=== PATIENT | female | born 1960 | race Caucasian/White ===

== ENCOUNTER 2016-07-03 21:04 | Emergency (ER) | payer BC ==
[~2016-07-03] VITALS: Ht 162.6 cm; Wt 111.0 kg
[~2016-07-03 21:04] MED LIST: CANA100T PO; CELE40TA PO; ESTE400C PO; FISH1000 PO; GABA800T PO; IBUP-232 PO; LACTCAP8 PO; LANTUS2P SQ; LEVO137T2 PO; LISI40TA PO; LOPE2TAB3 PO; METF1000 PO; METO100T PO; METO50TA PO; MULTTAB67 PO; NYST10007 TOPICAL; ROBA750T PO; ROSU10 PO; VITA10003 PO
[2016-07-03 22:24] VITALS: BP 144/76; PULSE 99; RESP 16; TEMP 98.2; O2SAT 94
[2016-07-04] MEDS ORDERED: IBUP-232 PO (02:07)
[2016-07-04] MEDS ORDERED: HYDR-3533 PO (02:07)
[2016-07-04] MEDS ORDERED: CYCL1TAB29 PO (02:07)
--- NOTE | 2016-07-04 02:07 | PD ---
HPI Chief Complaint: Musculoskeletal Complaint Time Seen by Provider: 01:57 Travel History International Travel<30 days: No Contact w/Intl Traveler<30days: No Traveled to known affect area: No History of Present Illness HPI The patient is a 56-year-old female that has a history of sciatic nerve pain on the left and on the right and she has a typical sciatic nerve pain that she usually has on the right for about 48 hours. She states the pain starts down her right leg and goes to the posterior knee and posterior calf. She says it did this on the left before with the same distribution. 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 She does have type 2 diabetes along with anxiety and depression. She is allergic to cephalexin, penicillin and Cipro. PFSH Past Medical History Arthritis: Yes Anxiety: Yes Depression: Yes Heart Rhythm Problems: Yes (BBB) Cancer: No Cardiovascular Problems: Yes (HTN) High Cholesterol: Yes Cerebrovascular Accident: Yes Diabetes: Yes (TYPE 2) Patient Takes Glucophage: Yes Diminished Hearing: No Endocrine: No Gastrointestinal Disorders: No GERD: Yes Genitourinary: No Headaches: Yes Hepatitis: No Hiatal Hernia: Yes Hypertension: Yes Immune Disorder: No Musculoskeletal: No Neurologic: No Psychiatric: Yes (anxiety) Reproductive: No Respiratory: No Immunizations Current: No Myocardial Infarction: Yes (x1) Thyroid Disease: Yes Triglycerides - High: Yes Tetanus Vaccination: < 5 Years Influenza Vaccination: No Menopausal: Yes Tubal Ligation: Yes Past Surgical History Abdominal Surgery: No AICD: No Cardiac Surgery: No Ear Surgery: No Endocrine Surgery: No Eye Surgery: No Genitourinary Surgery: No Joint Replacement: No Neurologic Surgery: No Oral Surgery: No Pacemaker: No Thoracic Surgery: No Other Surgery: Yes Social History Alcohol Use: No Tobacco Use: No Substance Use: No Allergies-Medications (Allergen,Severity, Reaction): Coded Allergies: Cephalexin (Verified Allergy, Severe, Hives, 07/03/16) Cipro (Verified Allergy, Severe, Hives, 07/03/16) Penicillin (Verified Allergy, Severe, Hives, 07/03/16) Reported Meds & Prescriptions Reported Meds & Active Scripts Active Crestor (Rosuvastatin Calcium) 10 Mg Tab 10 Mg PO DAILY Gabapentin 800 Mg Tab 800 Mg PO HS Celexa (Citalopram Hydrobromide) 40 Mg Tab 40 Mg PO DAILY Lisinopril 40 Mg Tab 40 Mg PO DAILY Robaxin (Methocarbamol) 750 Mg Tab 750 Mg PO Q8HR Ibuprofen 600 Mg Tab 600 Mg PO Q8HR PRN Metformin (Metformin HCl) 1,000 Mg Tab 1,000 Mg PO BIDPC With meals Reported Levothyroxine (Levothyroxine Sodium) 137 Mcg Tab 2 Tab PO DAILY Invokana (Canagliflozin) 100 Mg Tab 100 Mg PO DAILY Take before 1st meal of day. Multiple Vitamin 1 Tab 1 Tab PO DAILY Loperamide (Loperamide HCl) 2 Mg Tab 2 Mg PO Q4HR PRN One tablet after each loose stool. Not to exceed 8 tablets per day. Lantus Inj (Insulin Glargine) 100 Unit/Ml Inj 65 Units SQ BID Fish Oil ([place]-3 Fatty Acids) 1,000 Mg Cap 1,000 Mg PO DAILY Bernarda-E (Vitamin E) 400 Unit Cap 400 Units PO DAILY Vitamin D-3 (Cholecalciferol) 1,000 Unit Tab 2,000 Units PO DAILY Probiotic (Lactobacillus Acidophilus) 1 Cap Cap 1 Cap PO DAILY Nystop Topical (Nystatin Topical) 100,000 Unit/Gm Powd 1 Applic TOPICAL BID Metoprolol Tartrate 50 Mg Tab 50 Mg PO HS Metoprolol Tartrate 100 Mg Tab 100 Mg PO DAILY Review of Systems Except as stated in HPI: all other systems reviewed are Neg Physical Exam Narrative GENERAL: Well-nourished, morbidly obese patient in moderate apparent distress with her right leg pain. Her vital signs show blood pressure 140/76 but are otherwise normal. SKIN: Warm and dry. HEAD: Normocephalic. EYES: No scleral icterus. No injection or drainage. NECK: Supple, trachea midline. No JVD or lymphadenopathy. CARDIOVASCULAR: Regular rate and rhythm without murmurs, gallops, or rubs. RESPIRATORY: Breath sounds equal bilaterally. No accessory muscle use. GASTROINTESTINAL: Abdomen soft, non-tender, nondistended. MUSCULOSKELETAL: No cyanosis, or edema. No swelling is noted in the right calf and no cord is palpated in the right calf. She has tenderness along the right posterior upper and lower leg. She also has tenderness in the right buttocks near the sciatic nerve area. BACK: Nontender without obvious deformity. No CVA tenderness. Data Data Last Documented VS Vital Signs Date Time Temp Pulse Resp B/P Pulse Ox O2 Delivery O2 Flow Rate FiO2 07/03/16 22:24 98.2 99 16 144/76 94 MDM Medical Decision Making Medical Screen Exam Complete: Yes Emergency Medical Condition: Yes Medical Record Reviewed: Yes Differential Diagnosis Sciatic nerve pain, DVTunlikely, peripheral neuropathy Narrative Course The patient appears to have sciatic nerve pain. Plan: The patient will be given Flexeril, Lortab 5 and Motrin. She will get shots of Norflex and Toradol here. She needs to follow-up with her primary care physician and she does have an appointment within the next day. Physician Communication Physician Communication Keep your appointment with her primary care physician. Take the Motrin regularly, 1 tablet 3 times daily. You will develop high anti-inflammatory levels and this should calm the pain down. Diagnosis Primary Impression: Right sciatic nerve pain Med/Other Pt SpecificInfo: Prescription(s) given Scripts Cyclobenzaprine (Flexeril)10 Mg Tab10 Mg PO TID #30 TAB Ref 0 Prov:Anirudh Wagner MD 07/04/16 Hydrocodone-Acetaminophen (Lortab)5-325 Mg Tab1 Tab PO Q6H PRN (PAIN) #30 TAB Ref 0 Prov:Anirudh Wagner MD 07/04/16 Ibuprofen 600 Mg [id number] Mg PO TID #45 TAB Ref 0 Prov:Anirudh Wagner MD 07/04/16 Disposition: 01 DISCHARGE HOME Condition: Stable Anirudh Wagner MD Jul 04, 2016 02:07
[2016-07-04] MEDS ORDERED: KETOROLAC TROMETHAMINE 60 MG/2 ML (IM) VIAL IM ONE (02:15)
[2016-07-04] MEDS ORDERED: ORPHENADRINE INJ 60 MG/2 ML AMP IM ONE (02:15)
[2016-07-04 03:05] VITALS: BP 132/86
[2016-07-07] MEDS ORDERED: CELE40TA PO (10:22)
[2016-08-08] MEDS ORDERED: CELE40TA PO (12:48)
[2016-09-22] MEDS ORDERED: GABA800T PO (21:48)
== END 2016-07-04 03:06 | disposition home or self-care (01) ==
LOC: PHED 21:04 → PHEFT 07-04 03:06
DX: M54.31 Sciatica, right side (principal); E11.8 Type 2 diabetes mellitus with unspecified complications; I10 Essential (primary) hypertension; M19.90 Unspecified osteoarthritis, unspecified site; F41.8 Other specified anxiety disorders; Z79.4 Long term (current) use of insulin
CPT/HCPCS: 96372; 99283; J1885; J2360